=== PATIENT | female | born 1975 | race African-American/Black ===

== ENCOUNTER 2019-01-15 15:51 | Inpatient (IN) | payer OTHER ==
[~2019-01-15] VITALS: Ht 162.6 cm; Wt 126.4 kg
[~2019-01-15 15:51] MED LIST: IBUPROFEN600 MG ORAL; MACROBID100 MG ORAL; TYLENOL EXTRA500 MG ORAL
[2019-01-15 16:00] VITALS: BP 136/98
--- NOTE | 2019-01-15 16:00 | NUR ---
ED Nurse Note: Patient walked into ED c/o dyspnea. patient states that it has been going on for 1 week now, patient has no history of asthma or any other airway diseases. patient is alert and oriented x4, ambulatory with a steady gait, VSS
[2019-01-15] MEDS ORDERED: Albuterol ud Inhalation HHN ONE ×3 (16:15→18:15)
[2019-01-15] MEDS ORDERED: Ipratropium 0.02% Inh Soln 2.5ml UD HHN ONE (16:15)
[2019-01-15] MEDS ORDERED: Solu-MEDROL 125mg Inj IVP ONE (16:15)
[2019-01-15 16:39] LABS: BASOPHILS % (AUTO) 1.2 % (0.0-2.0); EOSINOPHILS % (AUTO) 2.5 % (0.0-3.0); HEMOGLOBIN 12.9 G/DL (12.0-16.0); LYMPHOCYTES % (AUTO) 24.2 % (20.0-45.0); MEAN CORPUSCULAR VOLUME 93 FL (80-99); MONOCYTES % (AUTO) 9.7 % (1.0-10.0); NEUTROPHILS % (AUTO) 62.4 % (45.0-75.0); PLATELET COUNT 227 K/UL (150-450); RED CELL DISTRIBUTION WIDTH 14.5 % (11.6-14.8); WHITE BLOOD COUNT 5.5 K/UL (4.8-10.8)
[2019-01-15 16:43] LABS: APPEARANCE,URINE CLEAR; BILIRUBIN, URINE NEGATIVE (NEGATIVE); COLOR,URINE PALE YELLOW; GLUCOSE, URINE (UA) NEGATIVE (NEGATIVE); KETONES,URINE NEGATIVE (NEGATIVE); LEUKOCYTE ESTERASE ,URINE NEGATIVE (NEGATIVE); NITRITE,URINE NEGATIVE (NEGATIVE); PH,URINE 6 (4.5-8.0); PROTEIN,URINE 2+ (NEGATIVE); UROBILINOGEN,URINE NORMAL MG/DL (0.0-1.0)
[2019-01-15 16:48] LABS: INR 1.2 (0.9-1.1)
[2019-01-15 16:50] LABS: ANION GAP 9 mmol/L (5-15); BLOOD UREA NITROGEN 13 mg/dL (7-18); CALCIUM 8.5 MG/DL (8.5-10.1); CARBON DIOXIDE 25 MMOL/L (21-32); CHLORIDE 106 MMOL/L (98-107); POTASSIUM 4.5 MMOL/L (3.5-5.1); SODIUM 140 MMOL/L (136-145)
[2019-01-15 17:01] LABS: ALANINE AMINOTRANSFERASE 100 U/L (12-78); ALBUMIN 2.8 G/DL (3.4-5.0); ALBUMIN/GLOBULIN RATIO 0.7 (1.0-2.7); ALKALINE PHOSPHATASE 92 U/L (46-116); ASPARTATE AMINO TRANSFERASE 121 U/L (15-37); BILIRUBIN,TOTAL 0.2 MG/DL (0.2-1.0)
[2019-01-15] MEDS ORDERED: Metoprolol 5mg/5ml Inj IVP STA (17:04)
--- NOTE | 2019-01-15 17:11 | Emergency Room Report ---
History of Present Illness General Chief Complaint: Dyspnea/Respdistress Source: Patient Present Illness HPI The patient's presents with dyspnea and shortness of breath with wheezing. This is gone since Wednesday. She's never been treated for asthma in the past. She's never used an inhaler. She has not had any fever or productive cough. There is also chest discomfort with pressure. She rates the pain 10/10, pressure, somewhat pleuritic and not radiating. She not take any medication for this. She hasn't any calf pain or edema. The cough has made her vomit once. She has a feel nauseated at this time. She denies any shortness sore throat, nasal congestion or rashes. No periods of immobilization. Cardiac risk factors: No smoking, hypertension, diabetes, family history. She does not know her cholesterol. No palpitations, nausea, vomiting, diarrhea, dysuria, abdominal pain, depression , visual changes, headache. 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 Now: No Reviewed Nursing Documentation: PMH: Agreed; PSxH: Agreed Nursing Documentation-PMH Past Medical History: No Stated History Review of Systems All Other Systems: negative except mentioned in HPI Physical Exam Vital Signs Date Time Temp Pulse Resp B/P (MAP) Pulse Ox O2 Delivery O2 Flow Rate FiO2 01/15/19 15:52 98.2 103 18 148/100 95 Room Air 01/15/19 16:30 21 Sp02 EP Interpretation: reviewed, abnormal - Interpreted as low by me General Appearance: well appearing, no apparent distress, GCS 15 Head: normocephalic Eyes: bilateral eye normal inspection, bilateral eye PERRL, bilateral eye fluoroscene uptake ENT: moist mucus membranes Neck: supple Respiratory: wheezing, expiration Cardiovascular #1: no edema, tachycardia Cardiovascular #2: 2+ radial (R) Gastrointestinal: normal inspection, normal bowel sounds, non tender, no mass, non-distended, overweight Genitourinary: no CVA tenderness Musculoskeletal: back normal, gait/station normal, normal range of motion, no calf tenderness, Kelvin's Sign negative Neurologic: alert, oriented x3, other Psychiatric: mood/affect normal Skin: normal inspection, warm/dry Medical Decision Making Diagnostic Impression: Primary Impression: Bronchospasm Additional Impressions: CHF (congestive heart failure) Qualified Codes: I50.9 - Heart failure, unspecified NSTEMI (non-ST elevated myocardial infarction) Cardiac asthma ER Course Patient presents with dyspnea, bronchospasm, tachycardia and hypoxia. Differential includes new-onset asthma, acute myocardial infarction, coronary embolus, pneumonia amongst others. Patient will be evaluated with EKG, chest x- ray and labs. The patient will be treated with slight Medrol and breathing treatments. EKG with sinus tachycardia, left atrial enlargement and left bundle branch block. Chest x-ray no infiltrates. Lab called with positive troponin. Patient is somewhat improved with breathing treatments however suspicion for pulmonary embolus is present. D-dimer added. Aspirin administered. One dose of metoprolol ordered. Nitrol past ordered. D-dimer positive. CTA with CHF. Lasix ordered. Repeat breathing treatments ordered. Patient somewhat improved with this. 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 The etiology of the congestive heart failure is unclear. Patient admitted to stepdown unit under the care of Dr. Ruiz. Laboratory Tests Test 01/15/19 16:20 White Blood Count 5.5 K/UL (4.8-10.8) Red Blood Count 4.40 M/UL (4.20-5.40) Hemoglobin 12.9 G/DL (12.0-16.0) Hematocrit 41.0 % (37.0-47.0) Mean Corpuscular Volume 93 FL (80-99) Mean Corpuscular Hemoglobin 29.3 PG (27.0-31.0) Mean Corpuscular Hemoglobin Concent 31.4 G/DL (32.0-36.0) L Red Cell Distribution Width 14.5 % (11.6-14.8) Platelet Count 227 K/UL (150-450) Mean Platelet Volume 5.2 FL (6.5-10.1) L Neutrophils (%) (Auto) 62.4 % (45.0-75.0) Lymphocytes (%) (Auto) 24.2 % (20.0-45.0) Monocytes (%) (Auto) 9.7 % (1.0-10.0) Eosinophils (%) (Auto) 2.5 % (0.0-3.0) Basophils (%) (Auto) 1.2 % (0.0-2.0) Prothrombin Time 12.7 SEC (9.30-11.50) H Prothrombin Time INR 1.2 (0.9-1.1) H PTT 26 SEC (23-33) D-Dimer 0.74 mg/L FEU (0.00-0.49) H Urine Color Pale yellow Urine Appearance Clear Urine pH 6 (4.5-8.0) Urine Specific [place] 1.020 (1.005-1.035) Urine Protein 2+ (NEGATIVE) H Urine Glucose (UA) Negative (NEGATIVE) Urine Ketones Negative (NEGATIVE) Urine Blood 3+ (NEGATIVE) H Urine Nitrite Negative (NEGATIVE) Urine Bilirubin Negative (NEGATIVE) Urine Urobilinogen Normal MG/DL (0.0-1.0) Urine Leukocyte Esterase Negative (NEGATIVE) Urine RBC 5-10 /HPF (0 - 2) H Urine WBC 0-2 /HPF (0 - 2) Urine Squamous Epithelial Cells Moderate /LPF (NONE/OCC) H Urine Bacteria Few /HPF (NONE) Urine Mucus Few /LPF (NONE/OCC) H Urine HCG, Qualitative Negative (NEGATIVE) Sodium Level 140 MMOL/L (136-145) Potassium Level 4.5 MMOL/L (3.5-5.1) Chloride Level 106 MMOL/L (98-107) Carbon Dioxide Level 25 MMOL/L (21-32) Anion Gap 9 mmol/L (5-15) Blood Urea Nitrogen 13 mg/dL (7-18) Creatinine 1.0 MG/DL (0.55-1.30) Estimate Glomerular Filtration Rate > 60 mL/min (>60) Glucose Level 117 MG/DL (74-106) H Calcium Level 8.5 MG/DL (8.5-10.1) Total Bilirubin 0.2 MG/DL (0.2-1.0) Aspartate Amino Transferase (AST) 121 U/L (15-37) H Alanine Aminotransferase (ALT) 100 U/L (12-78) H Alkaline Phosphatase 92 U/L (46-116) Troponin I 0.116 ng/mL (0.000-0.056) Pro-B-Type Natriuretic Peptide 1800 pg/mL (0-125) H Total Protein 7.1 G/DL (6.4-8.2) Albumin 2.8 G/DL (3.4-5.0) L Globulin 4.3 g/dL Albumin/Globulin Ratio 0.7 (1.0-2.7) L Microbiology Date/Time Source Procedure Growth Status 01/15/19 16:20 Nasal Nares Influenza Types A,B Antigen (GERMÁN) - Final Complete EKG Diagnostic Results Rate: tachycardiac Rhythm Strip Diag. Results EP Interpretation: yes Rhythm: no PVC's, no ectopy, other - Sinus tachycardia Chest X-Ray Diagnostic Results Chest X-Ray Diagnostic Results : Chest X-Ray Ordered: Yes # of Views/Limited/Complete: 1 View Indication: Other EP Interpretation: Yes Interpretation: no effusion, no pneumothorax, other - some increased ritter bilat Impression: Other Electronically Signed by: Electronically signed by Levy Carvajal MD Last Vital Signs Date Time Temp Pulse Resp B/P (MAP) Pulse Ox O2 Delivery O2 Flow Rate FiO2 01/16/19 00:51 92 18 96 Room Air 21 01/16/19 00:00 99.0 134/89 (104) Status: improved Disposition: ADMITTED INPATIENT Condition: Serious Referrals: [facility],REFERRING (PCP) Levy Carvajal MD Jan 15, 2019 17:11
[2019-01-15 17:45] VITALS: BP 135/82
[2019-01-15] MEDS ORDERED: Isovue-370 150ml vial INJ PRN (18:15)
[2019-01-15 18:42] VITALS: BP 126/78
[2019-01-15] MEDS ORDERED: Nitroglycerin 2% oint pkt TOPIC ONE (19:15)
[2019-01-15] MEDS ORDERED: Nitroglycerin Subl 0.4mg tab SL PRN (20:15)
--- NOTE | 2019-01-15 20:15 | NUR ---
TRANSFER TO FLOOR: Patient transferred to SDU as ordered, per Dr. Fink . Report given to Trista.
[2019-01-15 20:30] VITALS: BP 131/87
--- NOTE | 2019-01-15 20:30 | NUR ---
NURSE NOTES: Pt admitted from ER. Given report from STEPH Durand. Pt is awake and alert and no sign of acute distress noted. Denied pain at this time. IV site intact and no sign of infiltration noted. On RA ans SaO2 95-96% noted. Applied Tele monitor. Checked her belonging with nurse and Pt. Pt has 160 dollars money but pr refused to save hospital safe. Explained benefit and risks. Given admission instruction. Placed fall precaution. Will continue to monitor any change of condition.
[2019-01-15] MEDS: Metoprolol Tartrate 12.5mg TAB ORAL SCH (21:29)
[2019-01-15] MEDS: Aspirin Baby 81mg ORAL SCH (21:29)
[2019-01-15] MEDS ORDERED: Enoxaparin 40mg Inj SUBQ SCH (22:00)
--- NOTE | 2019-01-15 22:00 | History and Physical Report ---
DATE OF ADMISSION: 01/15/2019 REASON FOR ADMISSION: 1. Shortness of breath. 2. Elevated troponin. HISTORY OF PRESENT ILLNESS: The patient is a pleasant 43-year-old black female who is being admitted for further evaluation and care of progressive shortness of breath. The patient states up until this point, she did not take any medications. She had last seen her PCP approximately 1 year ago and was told that there were no issues. She noted some difficulty breathing on night, however, this progressively worsened until today where the patient states she could not move 3 or 4 steps without getting short of breath. As such, she presented to emergency room for further evaluation and care of shortness of breath when it was noted that the patient had an elevated troponin of 0.[address] of the chest was done to rule out pulmonary embolism and had demonstrated congestive heart failure and bronchospasm. The patient denies any nausea, vomiting, diarrhea, or any active chest pain. PAST MEDICAL HISTORY: None. ALLERGIES: No known drug allergies. FAMILY HISTORY: Positive for hypertension. PAST SURGICAL HISTORY: Noncontributory. LABORATORY DATA: Labs dated January 15, 2019, sodium 140, potassium 4.5, creatinine 1. Troponin 0.116. AST and ALT 121 and 100 respectively. Brain natriuretic peptide of 1800. Hemoglobin 12.9, white cell count 5.5, and platelet count 227,000. PHYSICAL EXAMINATION: VITAL SIGNS: Blood pressure 146/100, pulse 100, temperature 98.2, saturation 99% on room air. GENERAL: The patient is awake, alert, in no overt distress. HEENT: Extraocular muscles intact. No lymphadenopathy. Oropharyngeal mucosa clear and dry. CARDIOVASCULAR: S1 and S2. Regular rate. No rubs or gallops. No S3, no S4. PULMONARY: Mild bilateral basilar rales. Fair air movement in all lung cao. ABDOMINAL: Obese, nondistended, nontender. EXTREMITIES: No overt edema noted. ASSESSMENT AND PLAN: 1. Shortness of breath could be secondary to pulmonary edema from CHF. At this time, the patient will be diuresed gently and monitored. 2. CHF. Could be secondary to [id number]-elevation myocardial infarction with elevated troponin. Cardiology, Dr. Stephenson has been consulted. The patient has been placed on aspirin and beta-sushila. 3. Bronchospasm. Continue inhaler therapy. Dr. Gustafson to follow up, Pulmonary. 4. DVT prophylaxis with Lovenox subcutaneous. Romulo Draper MD DR: Yohannes JOB#: [id number] CC:
[2019-01-16] VITALS: BP 134/89
[2019-01-16] MEDS: Albuterol/Ipratropium 3ml neb HHN SCH ×4 (00:38→20:04)
[2019-01-16] MEDS: Guaifenesin/DM 10ml syrup ORAL PRN ×2 (02:47→12:00)
[2019-01-16 04:00] VITALS: BP 118/78
--- NOTE | 2019-01-16 07:09 | NUR ---
HAND-OFF: Report given to STEPH Barrera. Pt is resting on the bed and no sign of acute distress noted.
[2019-01-16 08:00] VITALS: BP 140/72
--- NOTE | 2019-01-16 08:00 | NUR ---
NURSE NOTES: Received patient from STEPH eason. Pt is awake and alert and no sign of acute distress noted. Denied pain at this time. IV site intact and no sign of infiltration noted. On RA ans SaO2 95-96% noted. Placed fall precaution. Will continue to monitor any change of condition.
[2019-01-16 08:35] LABS: BASOPHILS % (AUTO) 0.6 % (0.0-2.0); HEMATOCRIT 37.5 % (37.0-47.0); HEMOGLOBIN 12.2 G/DL (12.0-16.0); LYMPHOCYTES % (AUTO) 19.6 % (20.0-45.0); MEAN CORPUSCULAR VOLUME 93 FL (80-99); MONOCYTES % (AUTO) 5.1 % (1.0-10.0); NEUTROPHILS % (AUTO) 74.7 % (45.0-75.0); PLATELET COUNT 216 K/UL (150-450); RED BLOOD COUNT 4.05 M/UL (4.20-5.40)
--- NOTE | 2019-01-16 08:38 | Nephrology Progress Note ---
Assessment/Plan Assessment/Plan A/P 1) SOB- CHF/pulm edema - diuresed well and breathing improved - transfer to Telemetry 2) CHF- lasix. ECHO and cardiology evaluation pending 3) ACS/Elevated Trop I - trending down - cardiology to make reccs 4) HTN- on BB 5) Branchospasm- on breathing treatments - pulm to evaluate Subjective Date patient seen: Jan 16, 2019 Time patient seen: 08:29 ROS Limited/Unobtainable: No Allergies: Coded Allergies: No Known Allergies (Unverified , 10/21/13) Subjective Patient breathing better. SOB resolved Objective Last 24 Hour Vital Signs Date Time Temp Pulse Resp B/P (MAP) Pulse Ox O2 Delivery O2 Flow Rate FiO2 01/16/19 07:40 88 20 98 Room Air 21 01/16/19 07:32 91 20 91 Room Air 21 01/16/19 04:15 Nasal Cannula 2.0 28 01/16/19 04:15 96 Nasal Cannula 2.0 28 01/16/19 04:00 98.4 97 20 118/78 (91) 97 01/16/19 04:00 Room Air 01/16/19 04:00 87 01/16/19 00:51 92 18 96 Room Air 21 01/16/19 00:51 21 01/16/19 00:38 90 18 92 Room Air 21 01/16/19 00:00 Room Air 01/16/19 00:00 94 01/16/19 00:00 99.0 97 20 134/89 (104) 97 01/15/19 21:51 98.2 100 18 132/89 99 Room Air 01/15/19 21:29 101 137/84 01/15/19 21:00 Room Air 01/15/19 20:30 97 01/15/19 20:30 98.6 101 20 131/87 (102) 96 01/15/19 19:19 146/100 01/15/19 19:06 103 20 99 Room Air 21 01/15/19 18:51 21 01/15/19 18:46 96 15 98 Room Air 21 01/15/19 18:42 98.2 95 20 126/78 100 Room Air 21 01/15/19 17:53 105 20 100 Room Air 21 01/15/19 17:45 98.2 102 20 135/82 100 Room Air 21 01/15/19 17:41 21 01/15/19 17:41 87 18 99 Room Air 01/15/19 17:32 105 136/89 01/15/19 16:48 104 20 100 Room Air 21 01/15/19 16:31 21 01/15/19 16:30 101 18 Room Air 21 01/15/19 16:30 101 18 98 Room Air 21 01/15/19 16:00 103 18 Room Air 01/15/19 16:00 98.2 105 18 136/98 95 Room Air 01/15/19 15:52 98.2 103 18 148/100 95 Room Air Intake and Output 01/15/19 01/16/19 19:00 07:00 Intake Total 0 ml 1400 ml Output Total 11 ml Balance 0 ml 1389 ml Intake Oral 0 ml 1400 ml Output Urine Total 11 ml # Voids 1 # Bowel Movements 1 Laboratory Tests 01/15/19 16:20: White Blood Count 5.5, Red Blood Count 4.40, Hemoglobin 12.9, Hematocrit 41.0, Mean Corpuscular Volume 93, Mean Corpuscular Hemoglobin 29.3, Mean Corpuscular Hemoglobin Concent 31.4L, Red Cell Distribution Width 14.5, Platelet Count 227, Mean Platelet Volume 5.2L, Neutrophils (%) (Auto) 62.4, Lymphocytes (%) (Auto) 24.2, Monocytes (%) (Auto) 9.7, Eosinophils (%) (Auto) 2.5, Basophils (%) (Auto ) 1.2, Prothrombin Time 12.7H, Prothromb Time International Ratio 1.2H, Activated Partial Thromboplast Time 26, D-Dimer 0.74H, Urine Color Pale yellow, Urine Appearance Clear, Urine pH 6, Urine Specific [place] 1.020, Urine Protein 2+H, Urine Glucose (UA) Negative, Urine Ketones Negative, Urine Blood 3+H, Urine Nitrite Negative, Urine Bilirubin Negative, Urine Urobilinogen Normal, Urine Leukocyte Esterase Negative, Urine RBC 5-10H, Urine WBC 0-2, Urine Squamous Epithelial Cells ModerateH, Urine Bacteria Few, Urine Mucus FewH, Urine HCG, Qualitative Negative, Sodium Level 140, Potassium Level 4.5, Chloride Level 106, Carbon Dioxide Level 25, Anion Gap 9, Blood Urea Nitrogen 13 , Creatinine 1.0, Estimat Glomerular Filtration Rate > 60, Glucose Level 117H, Calcium Level 8.5, Total Bilirubin 0.2, Aspartate Amino Transf (AST/SGOT) 121H, Alanine Aminotransferase (ALT/SGPT) 100H, Alkaline Phosphatase 92, Troponin I 0.116H, Pro-B-Type Natriuretic Peptide 1800H, Total Protein 7.1, Albumin 2.8L, Globulin 4.3, Albumin/Globulin Ratio 0.7L 01/15/19 23:00: Troponin I 0.086H Height (Feet): 5 Height (Inches): 4.00 Weight (Pounds): 181 General Appearance: no apparent distress, alert EENT: normal ENT inspection Neck: normal alignment, supple Cardiovascular: normal rate, regular rhythm Respiratory/Chest: lungs clear, normal breath sounds Abdomen: non tender, soft Edema: no edema noted Arm (L), no edema noted Arm (R), no edema noted Leg (L), no edema noted Leg (R), no edema noted Pedal (L), no edema noted Pedal (R), no edema noted Generalized Romulo Draper MD Jan 16, 2019 08:38
[2019-01-16 08:54] LABS: ANION GAP 9 mmol/L (5-15); BLOOD UREA NITROGEN 15 mg/dL (7-18); CALCIUM 8.1 MG/DL (8.5-10.1); CARBON DIOXIDE 27 MMOL/L (21-32); CHLORIDE 102 MMOL/L (98-107); CREATININE 0.9 MG/DL (0.55-1.30); POTASSIUM 4.3 MMOL/L (3.5-5.1); SODIUM 138 MMOL/L (136-145)
[2019-01-16] MEDS: Metoprolol Tartrate 12.5mg TAB ORAL SCH ×2 (08:55→21:15)
[2019-01-16] MEDS: Aspirin Baby 81mg ORAL SCH (08:55)
--- NOTE | 2019-01-16 10:41 | Diagnostic Imaging Report ---
Indication: Chest pain Technique: Continuous helical transaxial imaging of the chest was obtained from the thoracic inlet to the upper abdomen during rapid intravenous contrast administration. Arterial phase of enhancement obtained. Coronal 2-D reformats were also obtained and maximum intensity projection images in multiple planes. Study obtained in a Siemens sensation [address] Automatic Exposure Control was utilized. Total Dose length Product (DLP): [address] Dose Index Volume (CTDIvol): 12.62 x 7, 88.36, 41.83 mGy Comparison: None Findings: The pulmonary artery is well opacified and shows no filling defects. There is no adenopathy, pleural or pericardial effusions are identified. There is no aortic dissection or aneurysm identified within the chest. Minimal patchy groundglass opacities are noted throughout the lungs. The lung bases are cut off from the [id number] and not fully imaged. The heart is enlarged. Visualized part of the upper abdomen is unremarkable. Impression: No evidence of pulmonary embolus, aortic dissection or aneurysm. Mild patchy groundglass opacities nonspecific. Cardiomegaly Note that the posterior lung bases are not included on this exam. The CT scanner at [facility] is accredited by the [employer] and the scans are performed using dose optimization techniques as appropriate to a performed exam including Automatic Exposure control.
[2019-01-16] MEDS: NovoLOG Insulin Flexpen SUBQ SCH ×3 (11:30→21:00)
--- NOTE | 2019-01-16 11:45 | Consultation ---
DATE OF CONSULTATION: 01/16/2019 PULMONARY CONSULTATION CONSULTING PHYSICIAN: Mauricio Gustafson M.D. HISTORY OF PRESENT ILLNESS: This is a 43-year-old female, who came in to the hospital with shortness of breath and wheezing. She denies any previous history of asthma and has not taken any inhalers in the past. She was seen and evaluated in the ER and diagnosed to have asthma. The patient has undergone imaging studies, which do not show any evidence of pulmonary embolism, however, there is concern that she may have pulmonary edema. The patient has no past history, however, there is family history of hypertension. At this time, the patient states she is feeling better. HOME MEDICATIONS: Reviewed and reconciled in the chart. REVIEW OF SYSTEMS: She denies any headaches, hematemesis, melena, hematochezia, or melena. ALLERGIES: None. HOME MEDICATIONS: Reviewed and reconciled in the chart. PHYSICAL EXAMINATION: GENERAL: Reveals a 43-year-old female. HEENT: Unremarkable. LUNGS: Clear breath sounds bilaterally. There is few basilar crackles. ABDOMEN: Soft. EXTREMITIES: Nonfocal. NEUROLOGIC: Nonfocal. IMPRESSION: 1. Suspect pulmonary edema. 2. Troponin leak. 3. Doubt asthma. DISCUSSION: I suspect the issue is cardiac in nature. Concur with the assessment of Dr. Draper to consult Cardiology. I will follow as product steward. Bronchodilators may be appropriate. I will discontinue steroids as I do not suspect that she has an active asthmatic process. We will continue to follow carefully. Thank you for the consultation. Mauricio Gustafson M.D. DR: Fatemeh JOB#: [id number] CC:
[2019-01-16 12:00] VITALS: BP 120/69
--- NOTE | 2019-01-16 12:13 | Diagnostic Imaging Report ---
Indication: Dyspnea Comparison: None A single view chest radiograph was obtained. Findings: Prominent vascularity and heart size demonstrated. Bones are unremarkable. IMPRESSION: CHF
--- NOTE | 2019-01-16 13:24 | Cardiology Progress Note ---
Assessment/Plan Assessment/Plan The patient is seen and examined, full consult note will be dictated. Objective Last 24 Hour Vital Signs Date Time Temp Pulse Resp B/P (MAP) Pulse Ox O2 Delivery O2 Flow Rate FiO2 01/16/19 08:55 88 118/78 01/16/19 08:00 82 01/16/19 08:00 Room Air 01/16/19 08:00 98.0 97 20 140/72 (94) 97 01/16/19 07:40 88 20 98 Room Air 21 01/16/19 07:32 91 20 91 Room Air 21 01/16/19 04:15 Nasal Cannula 2.0 28 01/16/19 04:15 96 Nasal Cannula 2.0 28 01/16/19 04:00 98.4 97 20 118/78 (91) 97 01/16/19 04:00 Room Air 01/16/19 04:00 87 01/16/19 00:51 92 18 96 Room Air 21 01/16/19 00:51 21 01/16/19 00:38 90 18 92 Room Air 21 01/16/19 00:00 Room Air 01/16/19 00:00 94 01/16/19 00:00 99.0 97 20 134/89 (104) 97 01/15/19 21:51 98.2 100 18 132/89 99 Room Air 01/15/19 21:29 101 137/84 01/15/19 21:00 Room Air 01/15/19 20:30 97 01/15/19 20:30 98.6 101 20 131/87 (102) 96 01/15/19 19:19 146/100 01/15/19 19:06 103 20 99 Room Air 21 01/15/19 18:51 21 01/15/19 18:46 96 15 98 Room Air 21 01/15/19 18:42 98.2 95 20 126/78 100 Room Air 21 01/15/19 17:53 105 20 100 Room Air 21 01/15/19 17:45 98.2 102 20 135/82 100 Room Air 21 01/15/19 17:41 21 01/15/19 17:41 87 18 99 Room Air 21 01/15/19 17:32 105 136/89 01/15/19 16:48 104 20 100 Room Air 21 01/15/19 16:31 21 01/15/19 16:30 101 18 Room Air 21 01/15/19 16:30 101 18 98 Room Air 21 01/15/19 16:00 103 18 Room Air 01/15/19 16:00 98.2 105 18 136/98 95 Room Air 01/15/19 15:52 98.2 103 18 148/100 95 Room Air Intake and Output 01/15/19 01/16/19 18:59 06:59 Intake Total 0 ml 1400 ml Output Total 11 ml Balance 0 ml 1389 ml Intake Oral 0 ml 1400 ml Output Urine Total 11 ml # Voids 1 # Bowel Movements 1 Laboratory Tests Test 01/15/19 16:20 01/15/19 23:00 01/16/19 08:00 White Blood Count 5.5 K/UL (4.8-10.8) 6.0 K/UL (4.8-10.8) Red Blood Count 4.40 M/UL (4.20-5.40) 4.05 M/UL (4.20-5.40) L Hemoglobin 12.9 G/DL (12.0-16.0) 12.2 G/DL (12.0-16.0) Hematocrit 41.0 % (37.0-47.0) 37.5 % (37.0-47.0) Mean Corpuscular Volume 93 FL (80-99) 93 FL (80-99) Mean Corpuscular Hemoglobin 29.3 PG (27.0-31.0) 30.1 PG (27.0-31.0) Mean Corpuscular Hemoglobin Concent 31.4 G/DL (32.0-36.0) L 32.4 G/DL (32.0-36.0) Red Cell Distribution Width 14.5 % (11.6-14.8) 14.0 % (11.6-14.8) Platelet Count 227 K/UL (150-450) 216 K/UL (150-450) Mean Platelet Volume 5.2 FL (6.5-10.1) L 5.6 FL (6.5-10.1) L Neutrophils (%) (Auto) 62.4 % (45.0-75.0) 74.7 % (45.0-75.0) Lymphocytes (%) (Auto) 24.2 % (20.0-45.0) 19.6 % (20.0-45.0) L Monocytes (%) (Auto) 9.7 % (1.0-10.0) 5.1 % (1.0-10.0) Eosinophils (%) (Auto) 2.5 % (0.0-3.0) 0.0 % (0.0-3.0) Basophils (%) (Auto) 1.2 % (0.0-2.0) 0.6 % (0.0-2.0) Prothrombin Time 12.7 SEC (9.30-11.50) H Prothromb Time International Ratio 1.2 (0.9-1.1) H Activated Partial Thromboplast Time 26 SEC (23-33) D-Dimer 0.74 mg/L FEU (0.00-0.49) H Urine Color Pale yellow Urine Appearance Clear Urine pH 6 (4.5-8.0) Urine Specific [place] 1.020 (1.005-1.035) Urine Protein 2+ (NEGATIVE) H Urine Glucose (UA) Negative (NEGATIVE) Urine Ketones Negative (NEGATIVE) Urine Blood 3+ (NEGATIVE) H Urine Nitrite Negative (NEGATIVE) Urine Bilirubin Negative (NEGATIVE) Urine Urobilinogen Normal MG/DL (0.0-1.0) Urine Leukocyte Esterase Negative (NEGATIVE) Urine RBC 5-10 /HPF (0 - 2) H Urine WBC 0-2 /HPF (0 - 2) Urine Squamous Epithelial Cells Moderate /LPF (NONE/OCC) H Urine Bacteria Few /HPF (NONE) Urine Mucus Few /LPF (NONE/OCC) H Urine HCG, Qualitative Negative (NEGATIVE) Sodium Level 140 MMOL/L (136-145) 138 MMOL/L (136-145) Potassium Level 4.5 MMOL/L (3.5-5.1) 4.3 MMOL/L (3.5-5.1) Chloride Level 106 MMOL/L (98-107) 102 MMOL/L (98-107) Carbon Dioxide Level 25 MMOL/L (21-32) 27 MMOL/L (21-32) Anion Gap 9 mmol/L (5-15) 9 mmol/L (5-15) Blood Urea Nitrogen 13 mg/dL (7-18) 15 mg/dL (7-18) Creatinine 1.0 MG/DL (0.55-1.30) 0.9 MG/DL (0.55-1.30) Estimat Glomerular Filtration Rate > 60 mL/min (>60) > 60 mL/min (>60) Glucose Level 117 MG/DL (74-106) H 168 MG/DL (74-106) H Calcium Level 8.5 MG/DL (8.5-10.1) 8.1 MG/DL (8.5-10.1) L Total Bilirubin 0.2 MG/DL (0.2-1.0) Aspartate Amino Transf (AST/SGOT) 121 U/L (15-37) H Alanine Aminotransferase (ALT/SGPT) 100 U/L (12-78) H Alkaline Phosphatase 92 U/L (46-116) Troponin I 0.116 ng/mL (0.000-0.056) 0.086 ng/mL (0.000-0.056) 0.082 ng/mL (0.000-0.056) Pro-B-Type Natriuretic Peptide 1800 pg/mL (0-125) H Total Protein 7.1 G/DL (6.4-8.2) Albumin 2.8 G/DL (3.4-5.0) L Globulin 4.3 g/dL Albumin/Globulin Ratio 0.7 (1.0-2.7) L Microbiology Date/Time Source Procedure Growth Status 01/15/19 16:20 Nasal Nares Influenza Types A,B Antigen (GERMÁN) - Final Complete Chung Stephenson MD Jan 16, 2019 13:24
--- NOTE | 2019-01-16 15:15 | Consultation ---
DATE OF CONSULTATION: 01/16/2019 CARDIOLOGY CONSULTATION CONSULTING PHYSICIAN: Chung Stephenson M.D. REFERRING PHYSICIAN: Romulo Draper M.D. REASON FOR CONSULTATION: Management of shortness of breath. HISTORY OF PRESENT ILLNESS: The patient is a very unfortunate 43-year-old lady with no past medical history, who presents to the hospital with dyspnea on exertion and wheezing. This has been going on since last Wednesday. The patient states that she had sick children at home and started to have flu-like symptoms of runny nose, sore throat, and cough. The patient has also some pleuritic chest pain associated with this. She had one episode of vomiting. At the time of arrival to the hospital, blood pressure was 148/100, pulse of 103, respirations of 18, O2 saturation 95% on room air, and temperature 98.2 degrees Fahrenheit. A 12-lead electrocardiogram done in the emergency department had shown sinus tachycardia with left atrial enlargement, left bundle-branch block. Chest x-ray showed cardiomegaly and associated congestive heart failure. She was admitted to telemetry for further evaluation and management. Cardiology consultation was made at the request of Dr. Draper. PAST MEDICAL HISTORY: None. SOCIAL HISTORY: Denies any tobacco, alcohol, or illicit drug use. ALLERGIES: No known drug allergies. FAMILY HISTORY: No premature coronary artery disease or arrhythmogenic in first-degree relatives. REVIEW OF SYSTEMS: A 12-system review done and essentially negative except what was mentioned in history of present illness. MEDICATIONS: List of medications including acetaminophen 500 mg q.6 hours p.r.n. pain, ibuprofen 600 mg 3 times a day, and nitrofurantoin 100 mg q.12 hours. PHYSICAL EXAMINATION: VITAL SIGNS: Blood pressure was 148/100, pulse 103, respirations of 18, temperature 98.2 degrees Fahrenheit, and O2 saturation 95% on room air. GENERAL: The patient is a very unfortunate 43-year-old obese lady, in no apparent respiratory distress. HEENT: Atraumatic and normocephalic. Anicteric. Pupils are equal, round, and reactive to light and accommodation. Extraocular muscles intact. NECK: JVP is elevated about 10 cm. No carotid bruit. CARDIOVASCULAR: Normal S1 and S2. Regular rhythm. There is positive S3. No murmurs or rubs. LUNGS: Diminished breath sounds due to poor respiratory effort. I did not hear any crackles. I did not hear any rhonchi. ABDOMEN: Obese. No hepatosplenomegaly. Positive bowel sounds. EXTREMITIES: No evidence of edema, clubbing, or cyanosis. LABORATORY FINDINGS: WBC is 5.5, hemoglobin of 12.9, hematocrit 41.0, platelet count is 227,000. Chemistry shows sodium 140, potassium is 4.5, chloride 106, bicarbonate 25, BUN of 13, creatinine 1.0, glucose 117, calcium is 8.5. AST and ALT 121 and 100 respectively. Troponin I x3, 0.116, 0.086, and 0.082. ProBNP was 1800. INR was 1.2. D-dimer was elevated at 0.74. ASSESSMENT AND PLAN: The patient is a very unfortunate 43-year-old female, seen in Cardiology consultation. 1. Dyspnea in face of elevated BNP and pulmonary edema on chest x-ray, also elevation of JVP, and presence of history, I suspect acute heart failure. A 2D echocardiography for assessment of LV systolic and diastolic function is ordered. Further therapeutic and diagnostic decision will be based on the results of echocardiography. In the meantime, I agree with diuretics and metoprolol. DVT prophylaxis has been made. We will obtain lipid panel in the morning as well. 2. Obesity. 3. Slight elevation of transaminase. 4. Slight elevation of troponin I level, could be [id number] myocardial infarction type 2 or elevation of troponin due to myocarditis/cardiomyopathy. We will continue with aspirin and beta-blockers. Lipid panel will be done in the morning. I would like to thank Dr. Draper for the courtesy of this consultation. Chung Stephenson M.D. DR: Alana JOB#: [id number] CC:
[2019-01-16 16:00] VITALS: BP 119/77
--- NOTE | 2019-01-16 16:51 | Cardiology Report ---
APPROVED REPORT EKG Measurement Heart [id number] Sinus tachycardia Possible Left atrial enlargement Left bundle branch block Abnormal ECG
--- NOTE | 2019-01-16 17:00 | NUR ---
HAND-OFF: Report given to STEPH Julio. VSS
--- NOTE | 2019-01-16 17:01 | NUR ---
NURSE NOTES: received patient in bed. A/O x4, ambulatory, VSS. oriented the patient to the room. patient states that "rogers" part on the belonging list can be crossed off because she gave away the rogers to her friend and she refuses to be checked for the rogers.
[2019-01-16] MEDS ORDERED: Nitroglycerin Subl 0.4mg tab SL PRN (17:45)
[2019-01-16] MEDS ORDERED: Isovue-370 150ml vial INJ PRN (18:15)
[2019-01-16] MEDS ORDERED: Guaifenesin/DM 10ml syrup ORAL PRN (18:45)
--- NOTE | 2019-01-16 19:10 | NUR ---
CASE MANAGEMENT: INITIAL REVIEW 01/16/2019 43 YO Didi TOMLINSON PRESENTED TO OUR ED FROM HOME CC: DYSPNEA PMHx: NONE STATED SI:DYSPNEA/NSTEMI T 98.2 HR 103 RR 18 B/P 148/100 SATS 95% ON RA GLU 117 AST 121 ALT 100 TROPONIN 0.116/0.086/0.082 BNP 1800 IS: DUO NEB HHN X1 SOLU MEDROL IV X1 LOPRESSOR IV X1 NS BOLUS X1 PATIENT ADMITTED TO TELE 01/15/2019 @ 2733 DCP: PATIENT TO BE DISCHARGED TO HOME ONCE MEDICALLY CLEARED. PLAN OF CARE: CARDIO EVAL Addendum: 01/16/19 at 1939 by Rhonda Lagunas CM INTERQUAL
--- NOTE | 2019-01-16 19:26 | NUR ---
HAND-OFF: Report given to Justen Michel RN. Patient is stable in bed.
--- NOTE | 2019-01-16 19:27 | NUR ---
NURSE NOTES: Received report from STEPH Julio. Patient sitting in bed awake aox4 with no signs of acute distress. Respiration even and non labored on room air. Vital's stable. No SOB. Bed in lowest position. Call light within reach. All needs attended and met. Will continue plan of care.
[2019-01-16 20:00] VITALS: BP 137/90
[2019-01-16] MEDS: Enoxaparin 40mg Inj SUBQ SCH (21:17)
[2019-01-17] VITALS (7 sets, daily range): BP systolic 101–144; BP diastolic 71–99
[2019-01-17] MEDS: Albuterol/Ipratropium 3ml neb HHN SCH ×4 (02:03→19:00)
[2019-01-17] MEDS: NovoLOG Insulin Flexpen SUBQ SCH ×4 (06:30→21:44)
--- NOTE | 2019-01-17 07:09 | NUR ---
HAND-OFF: Report given to STEPH Julio. Patient in bed asleep with no signs of acute distress. Vitals stable. No SOB. No c/o pain.
[2019-01-17 08:36] LABS: BASOPHILS % (AUTO) 1.7 % (0.0-2.0); EOSINOPHILS % (AUTO) 1.1 % (0.0-3.0); HEMATOCRIT 40.6 % (37.0-47.0); HEMOGLOBIN 13.1 G/DL (12.0-16.0); LYMPHOCYTES % (AUTO) 29.8 % (20.0-45.0); MEAN CORPUSCULAR VOLUME 93 FL (80-99); MONOCYTES % (AUTO) 7.3 % (1.0-10.0); NEUTROPHILS % (AUTO) 60.1 % (45.0-75.0); PLATELET COUNT 268 K/UL (150-450); RED BLOOD COUNT 4.36 M/UL (4.20-5.40); WHITE BLOOD COUNT 6.7 K/UL (4.8-10.8)
[2019-01-17] MEDS ORDERED: Aspirin Baby 81mg ORAL SCH (09:00)
[2019-01-17 09:11] LABS: ALANINE AMINOTRANSFERASE 112 U/L (12-78); ALBUMIN 2.8 G/DL (3.4-5.0); ALBUMIN/GLOBULIN RATIO 0.6 (1.0-2.7); ALKALINE PHOSPHATASE 72 U/L (46-116); ANION GAP 8 mmol/L (5-15); ASPARTATE AMINO TRANSFERASE 59 U/L (15-37); BILIRUBIN,TOTAL 0.5 MG/DL (0.2-1.0); BLOOD UREA NITROGEN 21 mg/dL (7-18); CALCIUM 8.6 MG/DL (8.5-10.1); CARBON DIOXIDE 29 MMOL/L (21-32); CHLORIDE 100 MMOL/L (98-107); CHOLESTEROL 98 MG/DL (< 200); CREATININE 1.3 MG/DL (0.55-1.30); HDL CHOLESTEROL 26 MG/DL (40-60); POTASSIUM 3.7 MMOL/L (3.5-5.1); SODIUM 137 MMOL/L (136-145); TRIGLYCERIDES 84 MG/DL (30-150)
[2019-01-17] MEDS: Metoprolol Tartrate 12.5mg TAB ORAL SCH ×2 (09:19→22:15)
--- NOTE | 2019-01-17 09:32 | Pulmonology Progress Note ---
Assessment/Plan Assessment/Plan IMPRESSION: 1. Suspect pulmonary edema. 2. Troponin leak. 3. Doubt asthma. DISCUSSION: The predominant issue is cardiac in nature. Concur with the assessment of Dr. Draper to consult Cardiology. I will follow as teletypewriter operator. Bronchodilators may be appropriate. Thank you for the consultation. Subjective Interval Events: Feeling better; ECHO results noted Constitutional: Reports: no symptoms HEENT: Repors: no symptoms Respiratory: Reports: no symptoms Cardiovascular: Reports: no symptoms Gastrointestinal/Abdominal: Reports: no symptoms Genitourinary: Reports: no symptoms Neurologic: Reports: no symptoms Allergies: Coded Allergies: No Known Allergies (Unverified , 10/21/13) Objective Last 24 Hour Vital Signs Date Time Temp Pulse Resp B/P (MAP) Pulse Ox O2 Delivery O2 Flow Rate FiO2 01/17/19 09:19 95 135/94 01/17/19 09:14 98.1 01/17/19 09:07 Room Air 01/17/19 09:04 100.3 95 18 135/94 (108) 98 01/17/19 08:00 99 01/17/19 06:42 96 18 100 Room Air 21 01/17/19 06:35 Room Air 21 01/17/19 06:35 100 Room Air 21 01/17/19 06:35 92 18 100 Room Air 21 01/17/19 04:00 69 01/17/19 04:00 99.1 98 20 101/71 (81) 92 01/17/19 02:13 95 20 97 Room Air 21 01/17/19 02:03 101 20 97 Room Air 21 01/17/19 00:00 97 01/17/19 00:00 99.1 98 20 121/80 (94) 92 01/16/19 21:15 98 137/90 01/16/19 20:12 97 20 98 Room Air 21 01/16/19 20:04 Room Air 21 01/16/19 20:04 95 Room Air 21 01/16/19 20:04 94 18 95 Room Air 21 01/16/19 20:00 111 01/16/19 20:00 98.2 98 22 137/90 (106) 94 01/16/19 16:00 89 01/16/19 16:00 Room Air 01/16/19 16:00 97.6 96 20 119/77 (91) 97 01/16/19 13:52 95 20 100 Room Air 21 01/16/19 13:42 99 20 100 Room Air 21 01/16/19 12:00 Room Air 01/16/19 12:00 98.0 90 20 120/69 (86) 97 01/16/19 12:00 85 Intake and Output 01/16/19 01/17/19 19:00 07:00 Intake Total 900 ml Balance 900 ml Intake Oral 900 ml # Voids 3 2 # Bowel Movements 1 General Appearance: no acute distress HEENT: normocephalic Respiratory/Chest: chest wall non-tender, lungs clear Cardiovascular: normal peripheral pulses, normal rate Abdomen: normal bowel sounds, soft, non tender Microbiology Date/Time Source Procedure Growth Status 01/15/19 16:20 Nasal Nares Influenza Types A,B Antigen (GERMÁN) - Final Complete Laboratory Tests 01/17/19 07:57: White Blood Count 6.7, Red Blood Count 4.36, Hemoglobin 13.1, Hematocrit 40.6, Mean Corpuscular Volume 93, Mean Corpuscular Hemoglobin 30.1, Mean Corpuscular Hemoglobin Concent 32.4, Red Cell Distribution Width 14.0, Platelet Count 268, Mean Platelet Volume 5.5L, Neutrophils (%) (Auto) 60.1, Lymphocytes (%) (Auto) 29.8, Monocytes (%) (Auto) 7.3, Eosinophils (%) (Auto) 1.1, Basophils (%) (Auto ) 1.7, Sodium Level 137, Potassium Level 3.7, Chloride Level 100, Carbon Dioxide Level 29, Anion Gap 8, Blood Urea Nitrogen 21H, Creatinine 1.3, Estimat Glomerular Filtration Rate 54.4, Glucose Level 154H, Hemoglobin A1c 6.2H, Calcium Level 8.6, Total Bilirubin 0.5, Aspartate Amino Transf (AST/SGOT) 59H, Alanine Aminotransferase (ALT/SGPT) 112H, Alkaline Phosphatase 72, Total Protein 7.2, Albumin 2.8L, Globulin 4.4, Albumin/Globulin Ratio 0.6L, Triglycerides Level 84, Cholesterol Level 98, LDL Cholesterol 62, HDL Cholesterol 26L, Cholesterol/HDL Ratio 3.8 Current Medications Medications (Trade) Dose Ordered Sig/Corey Route PRN Reason Start Time Stop Time Status Last Admin Dose Admin Acetaminophen (Tylenol) 650 mg Q4H PRN ORAL Mild Pain (Pain Scale 1-3) 01/16/19 18:00 02/14/19 17:59 Albuterol/ Ipratropium (Albuterol/ Ipratropium) 3 ml Q6HRT HHN 01/16/19 19:00 01/21/19 00:59 01/17/19 08:18 Aspirin (ASA) 81 mg DAILY ORAL 01/17/19 09:00 02/14/19 20:59 01/17/19 09:19 Dextrose (Dextrose 50%) 25 ml Q30M PRN IV Hypoglycemia 01/16/19 18:00 02/15/19 08:59 Dextrose (Dextrose 50%) 50 ml Q30M PRN IV Hypoglycemia 01/16/19 18:00 02/15/19 08:59 Diphenhydramine HCl (Benadryl) 25 mg Q6H PRN ORAL Itching/Pruritis 01/16/19 18:00 02/14/19 17:59 Enoxaparin Sodium (Lovenox) 40 mg Q24H SUBQ 01/16/19 22:00 02/14/19 21:59 01/16/19 21:17 Famotidine (Pepcid) 40 mg DAILY ORAL 01/17/19 09:00 02/15/19 08:59 01/17/19 09:19 Furosemide (Lasix) 40 mg EVERY 12 HOURS IV 01/16/19 21:00 02/14/19 20:59 01/17/19 09:19 Guaifenesin/ Dextromethorphan (Robitussin DM Syrup) 10 ml Q4H PRN ORAL For Cough 01/16/19 18:45 02/15/19 02:44 01/16/19 21:15 Insulin Aspart (NovoLOG) BEFORE MEALS AND HS SUBQ 01/16/19 21:00 02/15/19 11:29 Iopamidol (Isovue-370 150ml) 150 ml NOW PRN INJ Radiology Procedure 01/16/19 18:15 01/17/19 18:01 Metoprolol Tartrate (Lopressor) 12.5 mg Q12HR ORAL 01/16/19 21:00 02/14/19 20:59 01/17/19 09:19 Nitroglycerin (Ntg) 0.4 mg Q5M PRN SL Prn Chest Pain 01/16/19 17:45 02/14/19 20:14 Ondansetron HCl (Zofran) 4 mg Q6H PRN IVP Nausea & Vomiting 01/16/19 18:00 02/14/19 17:59 Mauricio Gustafson MD Jan 17, 2019 09:32
--- NOTE | 2019-01-17 10:23 | Nephrology Progress Note ---
Assessment/Plan Assessment/Plan A/P 1) SOB- CHF/pulm edema - diuresed well and breathing improved - DC lasix as Cr up to 1.3 2) CHF- lasix. ECHO 20% and Trop I leak 3) ACS/Elevated Trop I - EF 20% - cardiology to make reccs on how to proceed next 4) HTN- on BB 5) Branchospasm- on breathing treatments - pulm to manage 6) HANSEL- contrast Neph/CHF/diuretics - DC lasix and monitor Cr 7) DM- HgA1c 6.2 - ISS and accuchecks. Start Metformin tomorrow Subjective Date patient seen: Jan 17, 2019 Time patient seen: 10:17 ROS Limited/Unobtainable: No Allergies: Coded Allergies: No Known Allergies (Unverified , 10/21/13) All Systems: reviewed and negative except above Subjective Patient feels well and breathing back to baseline Objective Last 24 Hour Vital Signs Date Time Temp Pulse Resp B/P (MAP) Pulse Ox O2 Delivery O2 Flow Rate FiO2 01/17/19 09:19 95 135/94 01/17/19 09:14 98.1 01/17/19 09:07 Room Air 01/17/19 09:04 100.3 95 18 135/94 (108) 98 01/17/19 08:00 99 01/17/19 06:42 96 18 100 Room Air 01/17/19 06:35 Room Air 21 01/17/19 06:35 100 Room Air 21 01/17/19 06:35 92 18 100 Room Air 01/17/19 04:00 69 01/17/19 04:00 99.1 98 20 101/71 (81) 92 01/17/19 02:13 95 20 97 Room Air 21 01/17/19 02:03 101 20 97 Room Air 21 01/17/19 00:00 97 01/17/19 00:00 99.1 98 20 121/80 (94) 92 01/16/19 21:15 98 137/90 01/16/19 20:12 97 20 98 Room Air 21 01/16/19 20:04 Room Air 21 01/16/19 20:04 95 Room Air 21 01/16/19 20:04 94 18 95 Room Air 21 01/16/19 20:00 111 01/16/19 20:00 98.2 98 22 137/90 (106) 94 01/16/19 16:00 89 01/16/19 16:00 Room Air 01/16/19 16:00 97.6 96 20 119/77 (91) 97 01/16/19 13:52 95 20 100 Room Air 21 01/16/19 13:42 99 20 100 Room Air 21 01/16/19 12:00 Room Air 01/16/19 12:00 98.0 90 20 120/69 (86) 97 01/16/19 12:00 85 Intake and Output 01/16/19 01/17/19 19:00 07:00 Intake Total 900 ml Balance 900 ml Intake Oral 900 ml # Voids 3 2 # Bowel Movements 1 Laboratory Tests 01/17/19 07:57: White Blood Count 6.7, Red Blood Count 4.36, Hemoglobin 13.1, Hematocrit 40.6, Mean Corpuscular Volume 93, Mean Corpuscular Hemoglobin 30.1, Mean Corpuscular Hemoglobin Concent 32.4, Red Cell Distribution Width 14.0, Platelet Count 268, Mean Platelet Volume 5.5L, Neutrophils (%) (Auto) 60.1, Lymphocytes (%) (Auto) 29.8, Monocytes (%) (Auto) 7.3, Eosinophils (%) (Auto) 1.1, Basophils (%) (Auto ) 1.7, Sodium Level 137, Potassium Level 3.7, Chloride Level 100, Carbon Dioxide Level 29, Anion Gap 8, Blood Urea Nitrogen 21H, Creatinine 1.3, Estimat Glomerular Filtration Rate 54.4, Glucose Level 154H, Hemoglobin A1c 6.2H, Calcium Level 8.6, Total Bilirubin 0.5, Aspartate Amino Transf (AST/SGOT) 59H, Alanine Aminotransferase (ALT/SGPT) 112H, Alkaline Phosphatase 72, Total Protein 7.2, Albumin 2.8L, Globulin 4.4, Albumin/Globulin Ratio 0.6L, Triglycerides Level 84, Cholesterol Level 98, LDL Cholesterol 62, HDL Cholesterol 26L, Cholesterol/HDL Ratio 3.8 Height (Feet): 5 Height (Inches): 4.00 Weight (Pounds): 278 General Appearance: no apparent distress, alert EENT: normal ENT inspection Neck: normal alignment, supple Cardiovascular: normal rate, regular rhythm Respiratory/Chest: lungs clear, normal breath sounds Abdomen: non tender, soft Extremities: non-tender Edema: no edema noted Arm (L), no edema noted Arm (R), no edema noted Leg (L), no edema noted Leg (R), no edema noted Pedal (L), no edema noted Pedal (R), no edema noted Generalized Romulo Draper MD Jan 17, 2019 10:23
--- NOTE | 2019-01-17 12:14 | NUR ---
*-* INSURANCE *-* CLINICALS ,REVIEWS AND INTERQUAL HAVE BEEN FAXED TO: NIKOLAI CARBALLO; JOE P- [phone] X [facility] F- [phone]..........REVIEW/CLINICAL
--- NOTE | 2019-01-17 12:30 | NUR ---
CASE MANAGEMENT:REVIEW 01/17/19 SI: CHF. ELEVATED TROPONIN \100.3 95 18 135/94 98% ON RA TROPONIN(+) 0.082 IS: ASA PO QD LOVENOX SQ Q24 LOPRESSOR PO Q12 DUONEB HHN Q6HRS RTC : TELEMETRY
--- NOTE | 2019-01-17 19:30 | NUR ---
HAND-OFF: Report given to Alta CHOI . Patient is stable in bed
--- NOTE | 2019-01-17 20:00 | NUR ---
NURSE NOTES: Report received from Nori CHOI. Patient is observed in bed, awake, alert, oriented, and able to make needs known. Respiratory even and unlabored. Patient denies SOB/CP at this time. IV site is asymptomatic, patent, and intact. Bed is in lowest position with side rails up x2 and brakes are engaged. Bed alarm is on. Encouraged patient to use call light when in need of assistance, pt verbalized understanding. Will continue to monitor.
--- NOTE | 2019-01-17 21:12 | NUR ---
NURSE NOTES: Dr. Stephenson at bedside and provided education regarding possible plans for the patient. Patient verbalized understanding. Will continue to monitor.
[2019-01-17] MEDS ORDERED: Carvedilol 6.25mg Tab ORAL SCH (21:15)
--- NOTE | 2019-01-17 21:16 | Cardiology Progress Note ---
Assessment/Plan Assessment/Plan 1. Acute systolic and diastolic heart failure, new onset, ? etiology, will place her on GDMT. Requires right and left heart catheterization. Will transfer to [facility] once bed is available. 2. Obesity. 3. Slight elevation of transaminase. 4. Slight elevation of troponin I level likely due to cardiomyopathy, although type II NSTEMI cannot lorenzo entirely excluded. Subjective Subjective Sinus rhythm at rate of 86. Objective Last 24 Hour Vital Signs Date Time Temp Pulse Resp B/P (MAP) Pulse Ox O2 Delivery O2 Flow Rate FiO2 01/17/19 16:00 86 01/17/19 16:00 98.0 85 18 144/98 (113) 97 01/17/19 13:00 Room Air 21 01/17/19 13:00 21 01/17/19 12:00 97.7 89 16 135/98 (110) 96 01/17/19 12:00 90 01/17/19 09:19 95 135/94 01/17/19 09:14 98.1 01/17/19 09:07 Room Air 01/17/19 09:04 100.3 95 18 135/94 (108) 98 01/17/19 08:00 99 01/17/19 06:42 96 18 100 Room Air 21 01/17/19 06:35 Room Air 21 01/17/19 06:35 100 Room Air 21 01/17/19 06:35 92 18 100 Room Air 21 01/17/19 04:00 69 01/17/19 04:00 99.1 98 20 101/71 (81) 92 01/17/19 02:13 95 20 97 Room Air 01/17/19 02:03 101 20 97 Room Air 21 01/17/19 00:00 97 01/17/19 00:00 99.1 98 20 121/80 (94) 92 01/16/19 21:15 98 137/90 Intake and Output 01/16/19 01/17/19 18:59 06:59 Intake Total 900 ml Balance 900 ml Intake Oral 900 ml # Voids 3 2 # Bowel Movements 1 2D Echo: DCM, LVEF 10%, RVSP 43 mmHg, Mild MR, RAP at 10 mmHg Laboratory Tests Test 01/17/19 07:57 White Blood Count 6.7 K/UL (4.8-10.8) Red Blood Count 4.36 M/UL (4.20-5.40) Hemoglobin 13.1 G/DL (12.0-16.0) Hematocrit 40.6 % (37.0-47.0) Mean Corpuscular Volume 93 FL (80-99) Mean Corpuscular Hemoglobin 30.1 PG (27.0-31.0) Mean Corpuscular Hemoglobin Concent 32.4 G/DL (32.0-36.0) Red Cell Distribution Width 14.0 % (11.6-14.8) Platelet Count 268 K/UL (150-450) Mean Platelet Volume 5.5 FL (6.5-10.1) L Neutrophils (%) (Auto) 60.1 % (45.0-75.0) Lymphocytes (%) (Auto) 29.8 % (20.0-45.0) Monocytes (%) (Auto) 7.3 % (1.0-10.0) Eosinophils (%) (Auto) 1.1 % (0.0-3.0) Basophils (%) (Auto) 1.7 % (0.0-2.0) Sodium Level 137 MMOL/L (136-145) Potassium Level 3.7 MMOL/L (3.5-5.1) Chloride Level 100 MMOL/L (98-107) Carbon Dioxide Level 29 MMOL/L (21-32) Anion Gap 8 mmol/L (5-15) Blood Urea Nitrogen 21 mg/dL (7-18) H Creatinine 1.3 MG/DL (0.55-1.30) Estimat Glomerular Filtration Rate 54.4 mL/min (>60) Glucose Level 154 MG/DL (74-106) H Hemoglobin A1c 6.2 % (4.3-6.0) H Calcium Level 8.6 MG/DL (8.5-10.1) Total Bilirubin 0.5 MG/DL (0.2-1.0) Aspartate Amino Transf (AST/SGOT) 59 U/L (15-37) H Alanine Aminotransferase (ALT/SGPT) 112 U/L (12-78) H Alkaline Phosphatase 72 U/L (46-116) Total Protein 7.2 G/DL (6.4-8.2) Albumin 2.8 G/DL (3.4-5.0) L Globulin 4.4 g/dL Albumin/Globulin Ratio 0.6 (1.0-2.7) L Triglycerides Level 84 MG/DL (30-150) Cholesterol Level 98 MG/DL (< 200) LDL Cholesterol 62 mg/dL (<100) HDL Cholesterol 26 MG/DL (40-60) L Cholesterol/HDL Ratio 3.8 (3.3-4.4) Microbiology Date/Time Source Procedure Growth Status 01/15/19 16:20 Nasal Nares Influenza Types A,B Antigen (GERMÁN) - Final Complete Objective HEENT: Atraumatic and normocephalic. Anicteric. Pupils are equal, round, and reactive to light and accommodation. Extraocular muscles intact. NECK: JVP is elevated about 10 cm. No carotid bruit. CARDIOVASCULAR: Normal S1 and S2. Regular rhythm. There is positive S3. No murmurs or rubs. LUNGS: Diminished breath sounds due to poor respiratory effort. I did not hear any crackles. I did not hear any rhonchi. ABDOMEN: Obese. No hepatosplenomegaly. Positive bowel sounds. EXTREMITIES: No evidence of edema, clubbing, or cyanosis. Chung Stephenson MD Jan 17, 2019 21:16
[2019-01-17] MEDS: Enoxaparin 40mg Inj SUBQ SCH (21:49)
--- NOTE | 2019-01-18 | NUR ---
NURSE NOTES: Patient is asleep but arousable by voice. No s/s of acute distress noted at this time. VSS. Will continue to monitor.
[2019-01-18] MEDS: Albuterol/Ipratropium 3ml neb HHN SCH (00:09)
[2019-01-18 04:28] VITALS: BP 130/70
[2019-01-18] MEDS: NovoLOG Insulin Flexpen SUBQ SCH (06:30)
--- NOTE | 2019-01-18 07:15 | NUR ---
NURSE NOTES: Patient insisted on leaving AMA regardless the education of risks and benefits of adhering to medical advice Dr. Stephenson and RN provided for the patient. Primary MD and field sampling technician made aware. IV site is removed. quality assurance monitor removed and returned back to the athletic monitor. RN provided education regarding the risks of signing AMA, patient verbalized understanding. Belongings list checked and returned to the patient. Charge nurse made aware. Patient is in stable condition.
--- NOTE | 2019-01-18 08:05 | NUR ---
CASE MANAGEMENT:REVIEW 01/18/19 SI: ACUTE CHF. ELEVATED TROPONIN 98.1 88 18 130/70 97% ON RA TROPONIN(+)0.116-0.086-0.082 IS: LISINOPRIL PO QD ALDACTONE PO QD COREG PO Q12 ASA PO QD LOVENOX SQ Q24 DUONEB HHN Q6HRS RTC : TELEMETRY STATUS DCP: PATIENT IS FROM HOME PLAN: REQUIRES RT AND LT HEART CATH WILL NEED AUTHORIZATION FROM HARIS DIAZ [facility] FOR TRANSFER TO [facility] FOR HEART CATH
--- NOTE | 2019-01-18 08:18 | NUR ---
INSURANCE FAXED TO: NIKOLAI CARBALLO; JOE P- [phone] F- [phone] REQUESTED TRANSFER TO HIGHER LEVEL OF CARE FOR CARDIAC CATH
[2019-01-18] MEDS ORDERED: Lisinopril 2.5mg tab ORAL SCH (09:00)
[2019-01-18] MEDS ORDERED: Spironolactone 25mg tab ORAL SCH (09:00)
--- NOTE | 2019-01-18 09:31 | Consultation ---
Consult Note Assessment/Plan Patient left AMA 7:30 this AM Mauricio Gustafson MD Jan 18, 2019 09:31
--- NOTE | 2019-01-18 17:24 | Cardiology Report ---
APPROVED REPORT EKG Measurement Heart [id number] ID [id number] Normal sinus rhythm Left bundle branch block Abnormal ECG
--- NOTE | 2019-01-19 10:55 | Discharge Summary ---
Discharge Summary Discharge Summary _ DATE OF ADMISSION: 01/15/2019 DATE OF DISCHARGE: 01/18/2019 [employer]HIC[employer] CONVERTER: Dr. Chung Gustafson BRIEF HOSPITAL COURSE: Patient is a 43-year-old black female, who was admitted for further evaluation and care of progressive shortness of breath. Patient was not on any regular medications. She had last seen her PCP a year ago and was told there were no issues. She presented to ED due to difficulty breathing that had progressively worsened. She stated she could not move 3 or 4 steps without getting short of breath. On evaluation at the ED, blood pressure was 148/100, pulse rate 103. Blood work did not show any leukocytosis. Hemoglobin and hematocrit were stable. Electrolytes were normal. Troponin was elevated to 0.116. ProBNP 1800. Urinalysis with 2+ protein, 3+ blood, negative nitrite, negative leukocyte esterase, 0-2 WBC, and 5-10 RBC. Urine hCG was negative. EKG showed sinus tachycardia with left atrial enlargement and left bundle branch block. Chest x- ray with no infiltrates. D-dimer was 0.74. CTA of chest did not show any evidence of PE, aortic dissection or aneurysm. She was given aspirin. She was given metoprolol. She was given Nitropaste. She was given IV Solu-Medrol and Lasix. She was then admitted for evaluation of shortness of breath, pulmonary edema, CHF, and elevated troponin. She was placed on Lovenox for DVT prophylaxis. She was given pepcid for GI prophylaxis. Greige Mender was consulted. She was given bronchodilators. Recommended no steroids. Blood sugar was monitored. Hemoglobin A1c was 6.2. Blood glucose glucose levels were normal. She did not require insulin. Cardiac evaluation was done. Patient stated she had sick contacts at home and started to have flulike symptoms of runny nose, sore throat and cough. She also complained of pleuritic chest pain. She denied any tobacco, alcohol or illicit drug use. Patient had dyspnea and elevated BNP and pulmonary edema with elevation of JVP. Patient had acute heart failure. Echocardiogram showed dilated cardiomyopathy, LVEF of 10%, RVSP 43 mmHg, mild MR, RAP at 10 mmHg. Patient had systolic and diastolic heart failure, of new onset, etiology unknown. She was given GDMT. She was given beta-sushila, lisinopril, Lasix, and Spironolactone. He was given aspirin daily. Troponin levels were elevated. Slight elevation of troponin were likely due to cardiomyopathy, although type II STEMI cannot be entirely excluded. Patient will need right and left heart catheterization and will need to be transferred to higher level of care. Kidney function worsened. Lasix was discontinued. Full treatment was not carried out as patient left against medical advise. FINAL DIAGNOSES: Acute systolic and diastolic heart failure, new onset, etiology unknown Obesity Slight elevation of transaminase Slight elevation of troponin level likely due to cardiomyopathy, although type II STEMI cannot be entirely excluded Kidney injury Bronchospasms Diabetes mellitus DISPOSITION: Patient left against medical advise. I have been assigned to complete a discharge summary on this account, I was not involved with the patient's management. Savanna Rich NP Jan 19, 2019 10:55
== END 2019-01-18 07:15 | disposition left against medical advice (07) | DRG 194 ==
LOC: EMR 16:23 → 2W 17:35 → EDBEDREQ 18:44 → 2E 01-16 16:50
DX: I50.41 Acute combined systolic (congestive) and diastolic (congestive) heart failure (principal); I21.A1 Myocardial infarction type 2; I42.9 Cardiomyopathy, unspecified; E66.9 Obesity, unspecified; Z68.42 Body mass index [BMI] 45.0-49.9, adult; J98.01 Acute bronchospasm; E11.9 Type 2 diabetes mellitus without complications; I44.7 Left bundle-branch block, unspecified; R00.0 Tachycardia, unspecified; N28.89 Other specified disorders of kidney and ureter
CPT/HCPCS: 36415; 71045; 71275; 80048; 80053; 80061; 81003; 81025; 82962; 83036; 83880; 84484; 85025; 85379; 85610; 85730; 86710; 93005; 93306; 94640; 94664; 94760; 96361; 96374; 96375; 99285; J1815; J7620